=== PATIENT | female | born 1945 ===

== ENCOUNTER 2018-06-09 08:26 | Day surgery (SDC) | payer MEDICARE ==
[2018-06-09 08:54] VITALS: BMI 29.1
[2018-06-09 09:06] VITALS: O2SAT 100
[2018-06-09] MEDS ORDERED: Propofol 10 mg/ml Inj (20 ML) ONE (09:56)
[2018-06-09 10:42] VITALS: TEMP 97
[2018-06-09 11:04] VITALS: RESP 22
[2018-06-09 11:14] VITALS: BP 129/75; PULSE 70
== END 2018-06-09 11:15 | disposition home or self-care (01) ==
LOC: C.ENDO 08:26
PROVIDERS: ATTEND Internal Medicine Gastroenterology
DX: Z12.11 Encounter for screening for malignant neoplasm of colon (principal); D12.4 Benign neoplasm of descending colon; K64.8 Other hemorrhoids; Z86.010 Personal history of colon polyps
CPT/HCPCS: 45380; 82948; 88305; J2001; J2704

== ENCOUNTER 2019-02-11 09:20 | Emergency (ER) | payer MEDICARE ==
[2019-02-11 09:20] VITALS: BMI 29.1
[2019-02-11 09:31] VITALS: RESP 18; TEMP 98.7; O2SAT 100
--- NOTE | 2019-02-11 10:26 | C.PDOC ---
History Of Present Illness Patient complains of lower back pain that radiates to front lower abdomen and pubic area for the past 3 days. She reports urinary frequency and urine looks cloudy. Denies fever, dysuria, blood in urine, discharge. Time Seen by Provider: 02/11/19 10:09 Chief Complaint (Nursing): Back Pain History Per: Patient History/Exam Limitations: no limitations Onset/Duration Of Symptoms: Days (3) Current Symptoms Are (Timing): Still Present Past Medical History Reviewed: Historical Data, Nursing Documentation, Vital Signs Vital Signs: Last Vital Signs Temp 98.7 F 02/11/19 09:28 Pulse 81 02/11/19 09:28 Resp 18 02/11/19 09:28 BP 135/82 02/11/19 09:28 Pulse Ox 100 02/11/19 09:28 Primary Care Provider: Non [facility] Provider, - Medical History PMH: Colonic Polyps, HTN Denies: Asthma, COPD, Emphysema, Fractures, Chronic Kidney Disease, Seizures, Sleep Apnea, TIA Surgical History: No Surg Hx Denies: Endoscopy Family History: States: No Known Family Hx - Social History Hx Alcohol Use: No Hx Substance Use: No - Immunization History Hx Tetanus Toxoid Vaccination: Yes Hx Influenza Vaccination: Yes Hx Pneumococcal Vaccination: Yes Review Of Systems Constitutional: Negative for: Fever, Chills Gastrointestinal: Positive for: Abdominal Pain. Negative for: Nausea, Vomiting Genitourinary: Positive for: Frequency. Negative for: Dysuria, Hematuria, Vaginal Discharge Musculoskeletal: Positive for: Back Pain Physical Exam - Physical Exam Appears: Non-toxic, No Acute Distress Skin: Warm, Dry, No Rash Head: Normacephalic Eye(s): bilateral: Normal Inspection, EOMI Nose: Normal Oral Mucosa: Moist Neck: Supple Chest: Symmetrical Cardiovascular: Rhythm Regular Respiratory: Normal Breath Sounds, No Rales, No Rhonchi, No Wheezing Gastrointestinal/Abdominal: Soft, Tenderness (minimal suprapubic tenderness ), No Distention, No Guarding, No Rebound Back: No CVA Tenderness Extremity: Bilateral: Atraumatic, Normal Color And Temperature, Normal ROM Neurological/Psych: Oriented x3, Normal Speech Gait: Steady ED Course And Treatment O2 Sat by Pulse Oximetry: 100 (RA) Pulse Ox Interpretation: Normal Medical Decision Making Medical Decision Making: Plan: * UA, culture * Tylenol and Motrin UA shows LE and elevated WBCs, no blood Patient remained seated well in no distress during ED observation. Will treat for UTI with oral antibiotics Recommend fluids, rest, analgesics and to take antibiotic as prescribed twice daily Disposition Counseled Patient/Family Regarding: Diagnosis, Need For Followup, Rx Given - Disposition Disposition: HOME/ ROUTINE Disposition Time: 11:35 Condition: STABLE Additional Instructions: Tiene infeccin de la vejiga. alejandro antibiticos dos veces al da felecia ana semana beber lquidos y descansar Puede alejandro Tylenol o Advil para cualquier dolor. ve a heide a tu doctor primario Regreso al hospital si tiene dolor intenso, fiebre evan. Prescriptions: Acetaminophen [Extra Strength Non-Aspirin] 500 mg PO Q8 #24 tablet Nitrofurantoin Macrocrystals [Macrobid] 1 cap PO BID #14 cap Instructions: Urinary Tract Infections in Adults Print Language: FRENCH - POA Present On Arrival: None - Clinical Impression Clinical Impression: UTI (urinary tract infection) - PA / DEAN OF EDUCATION / Resident Statement MD/DO has reviewed & agrees with the documentation as recorded. - Scribe Statement The provider has reviewed the documentation as recorded by the Reshma Gutierrez All medical record entries made by the Reshma were at my direction and personally dictated by me. I have reviewed the chart and agree that the record accurately reflects my personal performance of the history, physical exam, medical decision making, and the department course for this patient. I have also personally directed, reviewed, and agree with the discharge instructions and disposition.
[2019-02-11 10:59] LABS: SQUAMOUS EPITHIAL 4 /hpf (0-5); URINE BACTERIA RARE (<OCC); URINE BILIRUBIN NEGATIVE (NEGATIVE); URINE BLOOD NEGATIVE (NEGATIVE); URINE CLARITY Clear (Clear); URINE COLOR Yellow (YELLOW); URINE GLUCOSE (UA) NORMAL (Normal); URINE LEUKOCYTE ESTERASE 1+ Leu/uL (Negative); URINE PROTEIN NEGATIVE (NEGATIVE); URINE UROBILINOGEN NORMAL mg/dL (0.2-1.0)
[2019-02-11 11:47] VITALS: BP 119/72; PULSE 68
== END 2019-02-11 11:48 | disposition home or self-care (01) ==
LOC: C.ER 09:20
DX: N39.0 Urinary tract infection, site not specified (principal)